=== PATIENT | male | born 1965 | race Caucasian/White ===

== ENCOUNTER 2017-01-04 09:52 | Day surgery (SDC) | payer OTHER ==
[2016-12-28 09:18] LABS: HEMATOCRIT 47.6 % (37.9-51.0); HEMOGLOBIN 16.7 g/dL (13.5-17.0); HGB HCT DIFFERENCE 2.5; MEAN CORPUSCULAR HEMOGLOBIN 29.3 pg (27.0-33.4); MEAN CORPUSCULAR VOLUME 84 fl (80-97); RED BLOOD COUNT 5.69 10^6/uL (4.35-5.55); RED CELL DISTRIBUTION WIDTH 13.3 % (11.5-14.0)
[2016-12-28 09:45] LABS: ALANINE AMINOTRANSFERASE 28 U/L (21-72); ALBUMIN 4.2 g/dL (3.5-5.0); ALKALINE PHOSPHATASE 64 U/L (38-126); ANION GAP 12 (5-19); ASPARTATE AMINO TRANSFERASE 21 U/L (17-59); BILIRUBIN,DIRECT 0.2 mg/dL (0.0-0.4); BILIRUBIN,TOTAL 0.7 mg/dL (0.2-1.3); BLOOD UREA NITROGEN 22 mg/dL (7-20); CALCIUM 9.5 mg/dL (8.4-10.2); CARBON DIOXIDE 27 mmol/L (22-30); CHLORIDE 104 mmol/L (98-107); CREATININE RESULT 0.94 mg/dL (0.52-1.25); GLUCOSE 112 mg/dL (75-110); POTASSIUM 4.5 mmol/L (3.6-5.0); SODIUM 143.1 mmol/L (137-145); TOTAL PROTEIN 6.8 g/dL (6.3-8.2)
--- NOTE | 2016-12-28 18:54 | EKG REPORT ---
SEVERITY:- NORMAL ECG - SINUS RHYTHM : Confirmed by: Jose F Barkley MD 28-Dec-2016 18:53:56
[~2017-01-04 09:52] MED LIST: ACETAMINOPHEN 325 MG TABLET PO PRN; ALBUTEROL SULFATE 0.083% NEB 2.5 MG/3 ML AMPUL NEB PRN; CEFAZOLIN 1 GM/D5W RTU 1 GM/50 ML RTUPB IV PRN; DEXAMETHASONE SOD PHOSPHATE INJ 4 MG/1 ML VIAL ONE; GLYCOPYRROLATE INJ 0.4 MG/2 ML VIAL ONE; KETOROLAC TROMETHAMINE 60 MG/2 ML SDV ONE; LACTATED RINGERS 1000 ML IV PRN; LIDOCAINE 0.5% INJ-PF (5 MG/ML) 50 ML SDV SUBCUT PRN; LIDOCAINE 2% INJ-PF (20 MG/ML) 10 ML AMPUL ONE; METOCLOPRAMIDE HCL INJ/PF 10 MG/2 ML SDV ONE; NEOSTIGMINE METHYLSULFATE 10 MG/10 ML VIAL ONE; ONDANSETRON HCL INJ/PF 4 MG/2 ML SDV ONE; ROCURONIUM BROMIDE INJ 50 MG/5 ML VIAL IV ONE; SUCCINYLCHOLINE CHLORIDE INJ 200 MG/10 ML VIAL ONE
[2017-01-04] MEDS ORDERED: RINGERS SOLUTION,LACTATED 1,000 ML IV PRN ×2 (10:56→13:19)
[2017-01-04] MEDS ORDERED: RINGERS SOLUTION,LACTATED 500 ML IV ONE (11:00)
[2017-01-04] MEDS ORDERED: ACETAMINOPHEN 100 ML IV ONE (11:02)
[2017-01-04] MEDS ORDERED: PROPOFOL INJ 200 MG/20 ML VIAL IV ONE (11:02)
[2017-01-04] MEDS ORDERED: MIDAZOLAM 2 MG/2 ML INJ ONE (11:02)
[2017-01-04] MEDS ORDERED: FENTANYL CITRATE INJ/PF 250 MCG/5 ML AMPULE ONE (11:02)
[2017-01-04] MEDS ORDERED: DEXMEDETOMIDINE INJ 80 MCG/20 ML VIAL IV ONE (11:03)
[2017-01-04] MEDS ORDERED: EPHEDRINE SULFATE INJ 50 MG/1 ML AMPULE ONE (11:03)
[2017-01-04] MEDS: BUPIVACAINE HCL 0.25 % INJ/PF (2.5 MG/1 ML) 30 ML VIAL ONE ×2 (12:01→12:33)
[2017-01-04] MEDS ORDERED: OXYCODONE-ACETAMINOPHEN 5-325 MG TABLET PO PRN (13:19)
[2017-01-04] MEDS ORDERED: ONDANSETRON HCL INJ/PF 4 MG/2 ML SDV IV PRN (13:19)
[2017-01-04] MEDS ORDERED: KETOROLAC TROMETHAMINE 60 MG/2 ML SDV IM PRN (13:19)
--- NOTE | 2017-01-04 13:19 | Operative Report ---
Operative Report DATE OF SURGERY: 01/04/17 PREOPERATIVE DIAGNOSIS: Symptomatic cholelithiasis with cholecystitis POSTOPERATIVE DIAGNOSIS: Same: Abdominal adhesions OPERATION: 1. Laparoscopic lysis of adhesions. 2. Laparoscopic cholecystectomy SURGEON: CONNOR GARCIA 1ST CYLINDER VALVE REPAIRER: LUIS SANTANA ANESTHESIA: GA TISSUE REMOVED OR ALTERED: 1 gallbladder with contents COMPLICATIONS: None ESTIMATED BLOOD LOSS: 25 mL INTRAOPERATIVE FINDINGS: See below PROCEDURE: After obtaining informed consent, the patient was taken to the operating room. General Anesthesia was induced; the arms were extended, and the abdomen was exposed, and prepped and draped in a sterile fashion. Instrumentation was set up for laparoscopic cholecystectomy. Surgical plan and surgical timeout were conducted. A vertical incision was made above the umbilicus, and a verres needle was inserted uneventfully into the peritoneal cavity. Pneumoperitoneum was established. The verres needle was removed and a 5 mm trocar was inserted and a 5 mm flexible laparoscope was inserted. Visualization of the peritoneal cavity confirmed safe uneventful entry. Under direct visualization 3 additional 5 mm ports were established, one in the subxiphoid position and second in the subcostal position just to the left of midline. The findings were significant for a dense film of adhesions between the anterior inferior surface of the right lobe of the liver to the intra-abdominal wall as well as the hepatic-duodenal fatty tissue. The findings were consistent with previous inflammation. The patient had no previous abdominal surgery in this area. Photos were taken. We used a combination of blunt, cautery with scissors and ligature energy device to take down the adhesions so that we could get exposure to the inferior surface of the liver and the gallbladder. Visualization of the hepatobiliary anatomy revealed no anatomic variations. A grasper was placed on the fundus of the gallbladder and the gallbladder is elevated over the right surface of the liver; a second grasper was used to grasp the infundibulum of the gallbladder. Because of the floppy nature of the gallbladder, and the fact that we were working in somewhat of a narrowed space as a result of the surrounding omentum still being attached to the more peripheral aspects of the liver, we opted to take the gallbladder down from the fundus. This was effected using hook cautery dissection. Eventually the gallbladder suspended solely from the cystic artery and cystic duct after clearing all final attachments. The neck of the gallbladder and junction with the cystic duct was dissected out. The Cystic artery was in its usual location medial and cephalad to the cystic duct. The cystic artery was surrounded with a right angle clamp, clipped twice proximally and divided with laparoscopic scissors. We now had the gallbladder suspended solely from the cystic duct. Multiple photographs were taken. We now milked the cystic duct of any possible stones, clipped the cystic duct approximately 3 times once distally and divided with scissors. T Graspers were repositioned and the gallbladder was removed uneventfully from the abdominal cavity through the super umbilical port site incision. The specimen was examined, then passed off to pathology for permanent analysis. We returned to the peritoneal cavity check for bleeding, and evidence of bile leak, and there was none. We Confirmed satisfactory placement of clips on cystic duct and cystic artery were secured . At this point we felt the operation was complete. The subcutaneous tissue was then anesthetized with quarter percent Marcaine Sponge and needle counts are correct. All ports removed under direct visualization pneumoperitoneum evacuated, and 5 mm port wounds closed with 3-0 Vicryl suture, benzoin and Steri-Strips. The patient was extubated, and taken to the recovery room in stable condition. The physician environmental engineering assistant, Ms. Santana, provided assistance during this case by: Assisting and port insertion, retracting tissue, instillation of local anesthesia and closure of skin incisions.
--- NOTE | 2017-01-04 13:21 | PDOC DISCHARGE SUMMARY ---
Discharge Summary (SDC) - Discharge Final Diagnosis: Symptomatic cholelithiasis with cholecystitis; intra-abdominal adhesions Date of Surgery: 01/04/17 Discharge Date: 01/04/17 Condition: Good Treatment or Instructions: [facility] [address] [place] [id number] Discharge Instructions: Laparoscopic Surgery 1. General Information: a. DO NOT DRIVE a car or operate dangerous machinery for 3-4 days or while taking narcotic pain pills. b. DO NOT consume alcohol, tranquilizers, sleeping medications or any non- prescribed medications for 24 hours unless approved by your doctor or as long as taking narcotic prescription medications. c. DO NOT make important decisions or sign any important papers for the first 24 hours after surgery. d. When discharged home the same day of surgery have a responsible person with you for the first night. 2. Activity Restrictions: 2 weeks. a. NO heavy lifting, straining abdominal muscles, bending over a lot, yard work, house work, or sports for [address] for 3-4 days or while taking percocet. c. It is fine to go for walks, up and down steps, ride in a car. d. Elevate your head when sleeping/resting. 3. Treatment: a. You may shower 24 hours after surgery, no baths or swimming for 2 weeks. Remove band-aids or dressings before shower but leave paper strips (steri-strips ) on the skin to fall off on their own. If still on at postoperative visit they will be removed then. b. Drainage of fluid or blood is not unusual from an incision. If occurs, you can clean with peroxide and cotton ball daily and cover with dry gauze until the wound seals. c. If a lot of bleeding occurs, you can hold pressure with a gauze or cloth over the site for 10 minutes and it will usually stop. If bleeding continues you will need to call for possible evaluation in office or emergency room. 4. Medications: a. Percocet may be taken for pain as needed, one or two tablets every 4-6 hours. Stop the narcotic when able since you cannot take it and drive, and they cause constipation. You may switch to plain Tylenol, Advil or Aleve as you transition from the narcotic. Many adults find good pain relief with Advil 600- 800 mg three times a day with meals. This can cause indigestion, ulcers, and kidney problems with long-term use. b. You should resume all normal medications unless a change is specified by your doctors. c. Begin with clear liquids and may progress to your normal diet if not nauseated. No high fat, high protein foods the day of surgery. Normal diet 6. The following may occur after laparoscopic surgery: a. Shoulder or upper back ache from retained gas that should resolve in 1-2 days b. Soreness and bruising at incision sites will resolve with time. c. Scrotal swelling (labia in women) and bruising is often seen after hernia surgery. d. Sore throat e. Fatigue may last days to weeks. f. Difficulty urinating may occur and may need to come into emergency room for urinary catheter placement. 7. Notify Physician If: a. Worsening or pain not improved with pain medication b. Persistent nausea and vomiting c. Fever above 101 d. Persistent bleeding or swelling at operative site e. Unable to urinate and uncomfortable bladder 6-8 hours after surgery 8..Follow Up Care: a. Schedule a follow up appointment with your doctor for 2 weeks. In the event of any postoperative problems or questions or you may call the office during business hours or the On-Call physician evenings and weekends at [facility] I understand the instructions for my postoperative care as described above and a copy has been given to me. Patient/Significant Other Witness Date Prescriptions: Oxycodone HCl/Acetaminophen [Percocet 5-325 mg Tablet] 1 tab PO ASDIR PRN #15 tab PRN Reason: Discharge Diet: As Tolerated Discharge Activity: Activity As Tolerated Home Care Assistance: None Needed Report the Following to Your Physician Immediately: Shortness of Breath, Increase in Pain, Fever over 101 Degrees
[2017-01-04] MEDS ORDERED: MEPERIDINE HCL/PF INJ 25 MG/1 ML DISP.SYRIN IV PRN (13:48)
[2017-01-04] MEDS ORDERED: PROMETHAZINE HCL INJ 25 MG/1 ML VIAL IV PRN ×2 (13:48)
[2017-01-04] MEDS ORDERED: FENTANYL CITRATE INJ/PF 100 MCG/2 ML AMPUL IV PRN ×3 (13:48)
[2017-01-04] MEDS ORDERED: DIPHENHYDRAMINE HCL 50 MG/ML VIAL IV PRN (13:48)
[2017-01-04 17:38] VITALS: BP 126/73
== END 2017-01-04 17:33 | disposition home or self-care (01) ==
LOC: OROUT 09:52
PROVIDERS: ATTEND Surgery
PROC: 0FT44ZZ Resection of Gallbladder, Percutaneous Endoscopic Approach (ICD-10-PCS; principal; 2017-01-04 12:00)
DX: K81.1 Chronic cholecystitis (principal); K66.0 Peritoneal adhesions (postprocedural) (postinfection); F17.210 Nicotine dependence, cigarettes, uncomplicated
CPT/HCPCS: 93005; 36415; 85027; 80076; 80048; 88304 ×2; 93010; 94640; 47562; J2250; J0690; J3490 ×3; J1100; J1885; J3010; J2765; J0330; J2405; J2704; J0131; 790

== ENCOUNTER 2017-06-16 09:16 | Emergency (ER) | payer OTHER ==
[2017-06-16] MEDS ORDERED: CEFTRIAXONE INJ 1000 MG VIAL IM ONE (09:49)
[2017-06-16] MEDS ORDERED: LIDOCAINE 1% INJ-PF (10 MG/ML) 30 ML SDV INJ ONE (09:49)
--- NOTE | 2017-06-16 10:06 | ER Document Report ---
ED Skin Rash/Insect Bite/Abscs - General Chief Complaint: Insect Bite Stated Complaint: POSSIBLE INSECT BITE Time Seen by Provider: 06/16/17 09:37 Mode of Arrival: Ambulatory Information source: Patient Notes: Patient is a 51-year-old male who presents to the ER today for possible insect bite to his right wrist. Patient states that he noticed it yesterday, did not see anything bite him, states that overnight he got redness and swelling to the wrist and a "bruise blister" to the site he thinks he may have been bitten not. Patient denies any fevers, chills, history of MRSA. He states that it has been draining some blood and yellow fluid. TRAVEL OUTSIDE OF THE [place] IN LAST 30 DAYS: No - Related Data Allergies/Adverse Reactions: erythromycin base Allergy (Severe, Verified 06/16/17 09:23) n and v Past Medical History - General Information source: Patient - Social History Smoking Status: Never Smoker Family History: Reviewed & Not Pertinent Patient has suicidal ideation: No Patient has homicidal ideation: No - Past Medical History Cardiac Medical History: Denies: Hx Coronary Artery Disease, Hx Heart Attack, Hx Hypertension Pulmonary Medical History: Denies: Hx Asthma, Hx Bronchitis, Hx COPD, Hx Pneumonia Neurological Medical History: Reports: Hx Seizures - as child-not current. Denies: Hx Cerebrovascular Accident Renal/ Medical History: Denies: Hx Peritoneal Dialysis Musculoskeltal Medical History: Denies Hx Arthritis - Immunizations Hx Diphtheria, Pertussis, Tetanus Vaccination: No Review of Systems - Review of Systems Constitutional: No symptoms reported EENT: No symptoms reported Cardiovascular: No symptoms reported Respiratory: No symptoms reported Gastrointestinal: No symptoms reported Genitourinary: No symptoms reported Male Genitourinary: No symptoms reported Musculoskeletal: No symptoms reported Skin: See HPI Hematologic/Lymphatic: No symptoms reported Neurological/Psychological: No symptoms reported Physical Exam - Vital signs Vitals: Temp Pulse Resp BP Pulse Ox 97.5 F 66 20 150/107 H 100 06/16/17 09:18 06/16/17 09:18 06/16/17 09:18 06/16/17 09:18 06/16/17 09:18 - Notes Notes: PHYSICAL EXAMINATION: GENERAL: Well-appearing and in no acute distress. HEAD: Atraumatic, normocephalic. EYES: Pupils equal round and reactive to light, extraocular movements intact, sclera anicteric, conjunctiva are normal. NECK: Normal range of motion, supple without lymphadenopathy LUNGS: CTAB and equal. No wheezes rales or rhonchi. HEART: Regular rate and rhythm without murmurs EXTREMITIES: Normal range of motion, no pitting edema. No cyanosis. NEUROLOGICAL: Cranial nerves grossly intact. Normal sensory/motor exams. PSYCH: Normal mood, normal affect. SKIN: Warm, Dry, normal turgor, 1 cm in diameter hematoma to the right lateral wrist, draining some yellow fluid, erythema to the dorsal right wrist and retirement up forearm, mild edema noted to the dorsal right wrist, no fluctuance or induration noted Course - Re-evaluation Re-evalutation: 06/16/17 10:47 hematoma was incised But did not actually drain any blood, just clear fluid like a blister. Patient was given Rocephin injection here and sent home on doxycycline and Keflex as erythema does seem to be spreading up forearm. Patient was afebrile here with normal vital signs. Wound culture was obtained. Skin marker was used to draw the area of redness and patient was highly advised to return if redness when outside the liner got worse. - Vital Signs Vital signs: Temp Pulse Resp BP Pulse Ox 98 F 67 17 147/64 H 97 06/16/17 10:27 06/16/17 10:27 06/16/17 10:27 06/16/17 10:27 06/16/17 10:27 Discharge - Discharge Clinical Impression: Infected blister Cellulitis Qualifiers: Site of cellulitis: extremity Site of cellulitis of extremity: upper extremity Laterality: right Qualified Code(s): L03.113 - Cellulitis of right upper limb Condition: Stable Disposition: HOME, SELF-CARE Additional Instructions: Please pay close attention to the redness, if it starts to get worse, please come back in immediately. Follow up with primary care provider, call tomorrow to make followup appointment. Prescriptions: Cephalexin Monohydrate [Keflex 500 mg Capsule] 500 mg PO BID 7 Days #14 capsule Doxycycline Hyclate 100 mg PO BID #20 capsule Forms: Return to Work
[2017-06-16 10:28] VITALS: BP 147/64
== END 2017-06-16 10:30 | disposition home or self-care (01) ==
LOC: ER 09:16
DX: S60.821A Blister (nonthermal) of right wrist, initial encounter (principal); L03.113 Cellulitis of right upper limb; X58.XXXA Exposure to other specified factors, initial encounter; Z88.1 Allergy status to other antibiotic agents
CPT/HCPCS: 99282; 96372; 87070; 87205; 87075; 10060; J0696

== ENCOUNTER 2018-02-15 07:51 | Emergency (ER) | payer OTHER ==
[2018-02-15] MEDS ORDERED: SULFAMETHOXAZOLE/TRIMETHOPRIM 800-160 MG TABLET PO ONE (09:13)
[2018-02-15] MEDS ORDERED: CEFTRIAXONE INJ 1000 MG VIAL IM ONE (09:13)
[2018-02-15] MEDS ORDERED: LIDOCAINE 1% INJ-PF (10 MG/ML) 30 ML SDV INFIL ONE (09:13)
--- NOTE | 2018-02-15 09:19 | ER Document Report ---
HPI - HPI Patient complains to provider of: Insect bite Onset: Other - 2 days ago Onset/Duration: Worse Quality of pain: Achy Pain Level: 2 Context: Patient complains of insect bite to the medial aspect of his left lower extremity. Patient states that the areas become red and swollen. Patient states he has had cellulitis due to insect bites in the past and suspects the same today. Patient states he did see his primary doctor and was placed on Keflex yesterday. Patient states that he has only had 3 doses of the medication so far. Associated Symptoms: Other - Insect bite, leg redness Exacerbated by: Denies Relieved by: Denies Similar symptoms previously: Yes Recently seen / treated by doctor: Yes - ROS ROS below otherwise negative: Yes Systems Reviewed and Negative: Yes All other systems reviewed and negative - CONSTITUTIONAL Constitutional: DENIES: Fever - EENT EENT: DENIES: Sore Throat - CARDIOVASCULAR Cardiovascular: DENIES: Chest pain - RESPIRATORY Respiratory: DENIES: Coughing - MUSCULOSKELETAL Musculoskeletal: REPORTS: Extremity pain, Swelling - DERM Skin Color: Erythema Skin Problems: Blister <KELL HARRISON - Last Filed: 02/15/18 16:37> Past Medical History - General Information source: Patient - Social History Smoking Status: Never Smoker Frequency of alcohol use: None Drug Abuse: None Occupation: School system Family History: Reviewed & Not Pertinent Patient has suicidal ideation: No Patient has homicidal ideation: No - Past Medical History Cardiac Medical History: Denies: Hx Coronary Artery Disease, Hx Heart Attack, Hx Hypertension Pulmonary Medical History: Denies: Hx Asthma, Hx Bronchitis, Hx COPD, Hx Pneumonia Neurological Medical History: Reports: Hx Seizures - as child-not current. Denies: Hx Cerebrovascular Accident Renal/ Medical History: Denies: Hx Peritoneal Dialysis Musculoskeltal Medical History: Denies Hx Arthritis Surgical Hx: Negative - Immunizations Hx Diphtheria, Pertussis, Tetanus Vaccination: No <KELL HARRISON - Last Filed: 02/15/18 16:37> Vertical Provider Document - CONSTITUTIONAL Agree With Documented VS: Yes Exam Limitations: No Limitations General Appearance: WD/WN, No Apparent Distress - INFECTION CONTROL TRAVEL OUTSIDE OF THE [place] IN LAST 30 DAYS: No - HEENT HEENT: Atraumatic, Normocephalic - NECK Neck: Normal Inspection, Supple - RESPIRATORY Respiratory: Breath Sounds Normal, No Respiratory Distress - MUSCULOSKELETAL/EXTREMETIES Musculoskeletal/Extremeties: AICHA KELLEY - NEURO Level of Consciousness: Awake, Alert, Appropriate Motor/Sensory: No Motor Deficit - DERM Integumentary: Warm, Dry Notes: Fluid-filled blisterlike lesion with surrounding erythema. No drainable abscess. Patient with streaking going up medial aspect of left thigh concerning for lymphangitis. <KELL HARRISON - Last Filed: 02/15/18 16:37> Course - Re-evaluation Re-evalutation: 02/15/18 09:15 Patient with cellulitis and lymphangitis, patient nontoxic in appearance. Patient has only had 3 doses of his antibiotics at this time. Patient encouraged to continue to take the Keflex although increase the dosage to every 6 hours in addition to adding Bactrim. Good return precautions given. - Vital Signs Vital signs: Temp Pulse Resp BP Pulse Ox 97.9 F 76 16 145/76 H 95 02/15/18 07:56 02/15/18 07:56 02/15/18 07:56 02/15/18 07:56 02/15/18 07:56 <KELL HARRISON - Last Filed: 02/15/18 16:37> - Vital Signs Vital signs: Temp Pulse Resp BP Pulse Ox 97.3 F 57 L 18 132/84 H 96 02/15/18 09:54 02/15/18 09:54 02/15/18 09:54 02/15/18 09:54 02/15/18 09:54 <ARMAAN ASCENCIO - Last Filed: 02/17/18 15:08> Discharge <KELL HARRISON - Last Filed: 02/15/18 16:37> - Discharge Scribe Attestation: 02/17/18 15:08 I personally performed the services described documentation, reviewed and edited the documentation which was dictated to describe my presence, and it accurately records my words and actions. <ARMAAN ASCENCIO - Last Filed: 02/17/18 15:08> - Discharge Clinical Impression: Cellulitis Qualifiers: Site of cellulitis: unspecified site Qualified Code(s): L03.90 - Cellulitis, unspecified Insect bite Qualifiers: Encounter type: initial encounter Qualified Code(s): W57.XXXA - Bitten or stung by nonvenomous insect and other nonvenomous arthropods, initial encounter Condition: Stable Disposition: HOME, SELF-CARE Instructions: Cellulitis ([facility]), Cephalexin ([facility]), Rocephin ([facility]), Swollen Insect Bite or Sting ([facility]), Trimethoprim-Sulfa ([facility]) Additional Instructions: Return immediately for any new or worsening symptoms Followup with your primary care provider, call tomorrow to make a followup appointment Increase the dose of your Keflex to 500 mg every 6 hours for 1 week. Prescriptions: Cephalexin Monohydrate [Keflex 500 mg Capsule] 500 mg PO Q6H 5 Days capsule Mupirocin [Bactroban 2% Ointment 22 gm] 1 applic TP TID #22 gm Naproxen [Naprosyn 250 Nmg Tablet] 1 tab PO BID #14 tablet Sulfamethoxazole/Trimethoprim [Bactrim Ds Tablet] 1 each PO BID #20 tablet Forms: Return to Work
[2018-02-15 09:55] VITALS: BP 132/84
== END 2018-02-15 09:54 | disposition home or self-care (01) ==
LOC: ER 07:51
DX: L03.116 Cellulitis of left lower limb (principal); S80.862A Insect bite (nonvenomous), left lower leg, initial encounter; M79.605 Pain in left leg; M79.89 Other specified soft tissue disorders; W57.XXXA Bitten or stung by nonvenomous insect and other nonvenomous arthropods, initial encounter
CPT/HCPCS: 99281; 96372; J3490; J0696

== ENCOUNTER → 2018-07-31 | Outpatient (CLI) | payer OTHER ==
--- NOTE | 2018-07-31 12:13 | RADIOLOGY REPORT (SQ) ---
EXAM DESCRIPTION: CHEST PA/LATERAL COMPLETED DATE/TIME: 07/31/2018 11:59 am REASON FOR STUDY: PRE-OP COMPARISON: None. EXAM PARAMETERS: NUMBER OF VIEWS: two views TECHNIQUE: Digital Frontal and Lateral radiographic views of the chest acquired. RADIATION DOSE: NA LIMITATIONS: none FINDINGS: LUNGS AND PLEURA: No opacities, masses or pneumothorax. No pleural effusion. MEDIASTINUM AND HILAR STRUCTURES: No masses or contour abnormalities. HEART AND VASCULAR STRUCTURES: Heart normal size. No evidence for failure. BONES: No acute findings. HARDWARE: None in the chest. OTHER: No other significant finding. IMPRESSION: NO SIGNIFICANT RADIOGRAPHIC FINDING IN THE CHEST. TECHNICAL DOCUMENTATION: JOB ID: [id number] [employer]- All Rights Reserved Reading location - IP/workstation name: [email or web address]
[2018-07-31 12:45] LABS: ANION GAP 12 (5-19); BLOOD UREA NITROGEN 13 mg/dL (7-20); CALCIUM 9.9 mg/dL (8.4-10.2); CARBON DIOXIDE 27 mmol/L (22-30); CHLORIDE 102 mmol/L (98-107); GLUCOSE 97 mg/dL (75-110); POTASSIUM 4.5 mmol/L (3.6-5.0); SODIUM 140.5 mmol/L (137-145)
[2018-07-31 14:52] LABS: HEMATOCRIT 48.6 % (37.9-51.0); HEMOGLOBIN 17.2 g/dL (13.5-17.0); MEAN CORPUSCULAR HEMOGLOBIN 30.2 pg (27.0-33.4); MEAN CORPUSCULAR HGB CONC 35.4 g/dL (32.0-36.0); MEAN CORPUSCULAR VOLUME 85 fl (80-97); PLATELET COUNT 280 10^3/uL (150-450); RED CELL DISTRIBUTION WIDTH 13.1 % (11.5-14.0); WHITE BLOOD COUNT 8.8 10^3/uL (4.0-10.5)
--- NOTE | 2018-07-31 20:09 | EKG REPORT ---
SEVERITY:- NORMAL ECG - SINUS RHYTHM : Confirmed by: Vianey Torres 31-Jul-2018 20:08:37
== END ==
LOC: OD 11:16
PROVIDERS: ATTEND Surgery
DX: Z01.818 Encounter for other preprocedural examination (principal); K43.2 Incisional hernia without obstruction or gangrene; Z90.49 Acquired absence of other specified parts of digestive tract; Z87.09 Personal history of other diseases of the respiratory system; N20.0 Calculus of kidney; F17.210 Nicotine dependence, cigarettes, uncomplicated
CPT/HCPCS: 36415; 71046; 80048; 85025; 85027; 93005; 93010

== ENCOUNTER 2018-08-17 08:32 | Day surgery (SDC) | payer OTHER ==
[~2018-08-17 08:32] MED LIST changes: +ACETAMINOPHEN 1,000 MG/100 ML RTUPB IV ONE; -ACETAMINOPHEN 325 MG TABLET PO PRN; -ALBUTEROL SULFATE 0.083% NEB 2.5 MG/3 ML AMPUL NEB PRN; +BUPIVACAINE HCL 0.25 % INJ/PF (2.5 MG/1 ML) 30 ML VIAL ONE; -CEFAZOLIN 1 GM/D5W RTU 1 GM/50 ML RTUPB IV PRN; +CEFAZOLIN SODIUM 2 GM in DEXTROSE 5%-WATER 100 ML IV PRN; +FENTANYL CITRATE INJ/PF 100 MCG/2 ML AMPUL ONE; -GLYCOPYRROLATE INJ 0.4 MG/2 ML VIAL ONE; +IBUPROFEN 800 MG in NORMAL SALINE 250 ML IV PRN; -KETOROLAC TROMETHAMINE 60 MG/2 ML SDV ONE; -METOCLOPRAMIDE HCL INJ/PF 10 MG/2 ML SDV ONE; +MIDAZOLAM 2 MG/2 ML INJ ONE; -NEOSTIGMINE METHYLSULFATE 10 MG/10 ML VIAL ONE; +PROPOFOL INJ 200 MG/20 ML VIAL IV ONE; -ROCURONIUM BROMIDE INJ 50 MG/5 ML VIAL IV ONE; -SUCCINYLCHOLINE CHLORIDE INJ 200 MG/10 ML VIAL ONE; +SUGAMMADEX SODIUM 200 MG/2 ML SDV IV ONE
[2018-08-17] MEDS ORDERED: ALBUTEROL SULFATE 0.083% NEB 2.5 MG/3 ML AMPUL NEB ONE (09:08)
[2018-08-17] MEDS ORDERED: ONDANSETRON HCL INJ/PF 4 MG/2 ML SDV IV PRN (11:06)
[2018-08-17] MEDS ORDERED: DIPHENHYDRAMINE HCL 50 MG/ML VIAL IV PRN (11:06)
[2018-08-17] MEDS ORDERED: PROMETHAZINE HCL INJ 25 MG/1 ML VIAL IV PRN ×2 (11:06)
[2018-08-17] MEDS ORDERED: MORPHINE SULFATE 10 MG/ML INJ IV PRN (11:06)
[2018-08-17] MEDS ORDERED: MEPERIDINE HCL/PF INJ 25 MG/1 ML DISP.SYRIN IV PRN (11:06)
[2018-08-17] MEDS ORDERED: FENTANYL CITRATE INJ/PF 100 MCG/2 ML AMPUL IV PRN ×3 (11:06)
[2018-08-17] MEDS ORDERED: FENTANYL CITRATE INJ/PF 100 MCG/2 ML AMPUL ONE (12:09)
[2018-08-17] MEDS ORDERED: HYDROMORPHONE HCL INJ/PF 2 MG/ML AMPULE ONE (13:12)
[2018-08-17] MEDS: HYDROMORPHONE HCL INJ/PF 2 MG/ML AMPULE IV PRN ×5 (13:12→13:52)
[2018-08-17] MEDS ORDERED: LORAZEPAM INJ 2 MG/1 ML VIAL ONE (14:17)
[2018-08-17] MEDS ORDERED: IPRATROPIUM/ALBUTEROL 0.5-2.5 MG/3 ML AMPUL NEB ONE (14:18)
[2018-08-17] MEDS ORDERED: SUCCINYLCHOLINE CHLORIDE INJ 200 MG/10 ML VIAL ONE (15:06)
[2018-08-17] MEDS ORDERED: ROCURONIUM BROMIDE INJ 50 MG/5 ML VIAL IV ONE (15:06)
[2018-08-17] MEDS: HYDROCODONE/ACETAMINOPHEN 10-325 MG TABLET ONE ×2 (15:15→15:20)
[2018-08-17 16:58] VITALS: BP 148/88
--- NOTE | 2018-08-22 20:01 | Operative Report ---
Nonrecallable Operative Report DATE OF SURGERY: 08/17/18 PREOPERATIVE DIAGNOSIS: 1. Incisional ventral hernia. 2. Diastases recti POSTOPERATIVE DIAGNOSIS: Same as above OPERATION: 1. Robot-assisted laparoscopic ventral hernia repair with mesh. 2. Laparoscopic plication of diastases recti. SURGEON: MARILOU GUTIÉRREZ ANESTHESIA: GA TISSUE REMOVED OR ALTERED: None COMPLICATIONS: None apparent ESTIMATED BLOOD LOSS: Minimal PROCEDURE: Drains/implants 15 x [address] hernia mesh. Procedure in detail: After informed consent was obtained, the patient was brought into the operating room and laid in the supine position. The area of the abdomen was prepped and draped in a normal sterile fashion. A 15 blade scalpel was used to create a left upper quadrant incision. The abdomen was then accessed using a 5 mm trocar and 5 mm camera in the left upper quadrant. It was introduced into the abdomen using the Optiview technique. Gas insufflation was attached, and pneumoperitoneum was achieved. Next an 8 mm robotic trocar was placed in the left lower quadrant under direct laparoscopic visualization. A 12 mm trocar was placed in the left lateral abdomen. The 5 mm trocar was removed and replaced with an 8 mm robotic trocar. The robot was then brought over the patient and docked appropriately. Attention was then turned to examination of the incisional hernia defect. The defect was situated in the supraumbilical position. There was also a large diastases recti present. The falciform ligament was mobilized and plication of the diastases with closure of the defect was undertaken. This was done using 3 separate number 1 V lock sutures in simple running fashion, overlapping the sutures. Once this was completed a 15 x [address] hernia mesh was chosen to adequately cover the defect and diastases. The mesh was apposed to the anterior abdominal wall using the EPS system. The mesh was then sutured into place using 2-0 V lock suture in simple running fashion. Once this was completed, the mesh was inspected. It was found to lie flat against the anterior abdominal wall. It appeared to be in very good position. Next, the robot was undocked and attention was turned to closure of the laparoscopic trocar sites. The 8 mm trocar sites were closed using 0 Vicryl suture in simple interrupted fashion with the Endo Close device. The 12 mm trocar was closed using 0 Vicryl suture in [id number] fashion with the Endo Close device. Once this was completed, the trochars were removed and pneumoperitoneum was relieved. The trocar site fascia was closed using the previously placed sutures. The overlying skin was closed using 4-0 Vicryl Rapide suture in subcuticular fashion. Dressings were placed, and the procedure was concluded. All sponge, instrument, and needle counts were correct x2. Condition: Stable.
--- NOTE | 2018-08-22 20:03 | Discharge Summary ---
Discharge Summary (SDC) - Discharge Final Diagnosis: Ventral incisional hernia Date of Surgery: 08/17/18 Discharge Date: 08/17/18 Condition: Stable Forms: ASU Anesthesia D/C Instruction, Discharge POC-Surgical Service Referrals: MARILOU GUTIÉRREZ MD [ACTIVE STAFF] - 09/03/18 3:30 pm Discharge Diet: As Tolerated Respiratory Treatments at Home: Deep Breathing/Coughing, Incentive Spirometer Discharge Activity: Balance Activity w/Rest, No Lifting Over 10 Pounds Home Care Assistance: None Needed Report the Following to Your Physician Immediately: Increase in Pain, Fever over 101 Degrees, Unusual Bleeding, Redness, Swelling, Warmth, Drainage-Foul Smelling, IV Site Infection Signs
== END 2018-08-17 16:50 | disposition home or self-care (01) ==
LOC: OROUT 08:32
PROVIDERS: ATTEND Surgery
DX: K43.2 Incisional hernia without obstruction or gangrene (principal); M62.08 Separation of muscle (nontraumatic), other site; Z88.1 Allergy status to other antibiotic agents
CPT/HCPCS: 49329; 49654; S2900; 36415; 790; 86850; 86900; 86901; C1781; J0131; J0330; J0690; J1100; J1170; J1741; J2060; J2250; J2405; J2704; J3010; J3490; J7050; J7620

== ENCOUNTER 2019-10-09 09:53 | Emergency (ER) | payer OTHER ==
[2019-10-09 10:37] LABS: ABSOLUTE EOSINOPHILS # (AUTO) 0.1 10^3/uL (0.0-0.6); ABSOLUTE LYMPHOCYTES (AUTO) 3.2 10^3/uL (0.5-4.7); ABSOLUTE MONOCYTES (AUTO) 1.2 10^3/uL (0.1-1.4); ABSOLUTE NEUT (AUTO) 14.2 10^3/uL (1.7-8.2); BASOPHILS % (AUTO) 0.2 % (0-2); EOSINOPHILS % (AUTO) 0.5 % (0-6); HEMATOCRIT 45.5 % (37.9-51.0); HEMOGLOBIN 15.8 g/dL (13.5-17.0); MEAN CORPUSCULAR HEMOGLOBIN 29.7 pg (27.0-33.4); MEAN CORPUSCULAR HGB CONC 34.7 g/dL (32.0-36.0); MEAN CORPUSCULAR VOLUME 86 fl (80-97); MONOCYTES % (AUTO) 6.3 % (3-13); PLATELET COUNT 266 10^3/uL (150-450); RED BLOOD COUNT 5.32 10^6/uL (4.35-5.55); RED CELL DISTRIBUTION WIDTH 13.2 % (11.5-14.0); TOTAL CELLS COUNTED % (AUTO) 100 %; WHITE BLOOD COUNT 18.7 10^3/uL (4.0-10.5)
[2019-10-09 10:51] LABS: ALKALINE PHOSPHATASE 70 U/L (38-126); ANION GAP 8 (5-19); ASPARTATE AMINO TRANSFERASE 17 U/L (17-59); BILIRUBIN,TOTAL 0.3 mg/dL (0.2-1.3); BLOOD UREA NITROGEN 18 mg/dL (7-20); CALCIUM 9.6 mg/dL (8.4-10.2); CARBON DIOXIDE 27 mmol/L (22-30); CHLORIDE 102 mmol/L (98-107); CREATINE KINASE 32 U/L (55-170); GLUCOSE 111 mg/dL (75-110); POTASSIUM 4.1 mmol/L (3.6-5.0); TOTAL PROTEIN 6.5 g/dL (6.3-8.2)
--- NOTE | 2019-10-09 10:58 | RADIOLOGY REPORT (SQ) ---
EXAM DESCRIPTION: CHEST SINGLE VIEW COMPLETED DATE/TIME: 10/09/2019 10:24 am REASON FOR STUDY: BED 20 CP COMPARISON: 07/31/2018 EXAM PARAMETERS: NUMBER OF VIEWS: One view. TECHNIQUE: Single frontal radiographic view of the chest acquired. RADIATION DOSE: NA LIMITATIONS: None. FINDINGS: LUNGS AND PLEURA: No opacities, masses or pneumothorax. No pleural effusion. MEDIASTINUM AND HILAR STRUCTURES: No masses. Contour normal. HEART AND VASCULAR STRUCTURES: Heart normal in size. Normal vasculature. BONES: No acute findings. HARDWARE: None in the chest. OTHER: No other significant finding. IMPRESSION: NO ACUTE RADIOGRAPHIC FINDING IN THE CHEST. TECHNICAL DOCUMENTATION: JOB ID: [id number] [employer]- All Rights Reserved Reading location - IP/workstation name: [email or web address]
[2019-10-09 11:07] LABS: TROPONIN I < 0.012 ng/mL
--- NOTE | 2019-10-09 12:55 | EKG REPORT ---
SEVERITY:- ABNORMAL ECG - ATRIAL FIBRILLATION, V-RATE 66-103 LEFT BUNDLE BRANCH BLOCK : Confirmed by: Jose F Barkley MD 09-Oct-2019 12:54:41
[2019-10-09] MEDS ORDERED: APIXABAN 5 MG TABLET PO ONE (13:03)
[2019-10-09] MEDS ORDERED: METOPROLOL SUCCINATE 50 MG TAB.SR.24H PO ONE (13:03)
--- NOTE | 2019-10-09 13:09 | ER Document Report ---
ED General - General Chief Complaint: Irregular Pulse Stated Complaint: CHEST TIGHTNESS Time Seen by Provider: 10/09/19 12:13 Primary Care Provider: JOHNNY PALMER PA-C [Primary Care Provider] - Follow up as needed TRAVEL OUTSIDE OF THE [place] IN LAST 30 DAYS: No - HPI Notes: Patient is a 53-year-old gentleman who presents to the emergency department for evaluation of chest pain. He states he was getting ready for work and he developed some chest tightness. He states that he had no associated nausea, diaphoresis, near syncope. He may have felt some palpitations. His pain was diffuse, across his whole chest, did not radiate. He was evaluated in route, given 1 nitroglycerin and his pain entirely resolved. He was found in route to be in atrial fibrillation. He has no history of that. Patient actually saw his coal sample tester, Dr. Shepherd, last week. He had a negative nuclear medicine stress test at that time. He had an echocardiogram which at that time was unremarka ble. He does have a history of a left bundle branch block per the patient. - Related Data Allergies/Adverse Reactions: erythromycin base Allergy (Severe, Verified 06/16/17 09:23) n and v Home Medications: cholesterol meds. Patient currently also on steroids and an unknown antibiotic secondary to a "infected bug bite" on his left ankle Past Medical History - General Information source: Patient - Social History Smoking Status: Current Every Day Smoker Family History: Reviewed & Not Pertinent Patient has suicidal ideation: No Patient has homicidal ideation: No - Past Medical History Cardiac Medical History: Reports: Hx Hypercholesterolemia Denies: Hx Coronary Artery Disease, Hx Heart Attack, Hx Hypertension Pulmonary Medical History: Denies: Hx Asthma, Hx Bronchitis, Hx COPD, Hx Pneumonia Neurological Medical History: Reports: Hx Seizures - as child-not current. Denies: Hx Cerebrovascular Accident Renal/ Medical History: Denies: Hx Peritoneal Dialysis Musculoskeletal Medical History: Denies Hx Arthritis - Immunizations Hx Diphtheria, Pertussis, Tetanus Vaccination: No Review of Systems - Review of Systems Cardiovascular: See HPI Skin: See HPI -: Yes All other systems reviewed and negative Physical Exam - Vital signs Vitals: Pulse Ox 100 10/09/19 09:56 - Notes Notes: Vital signs reviewed, please refer to chart. Head is normocephalic, atraumatic. Pupils equal round, reactive to light. Neck is supple without meningismus. Heart is irregularly irregular. Lungs are clear to auscultation bilaterally. Abdomen is soft, nontender, normoactive bowel sounds throughout. Extremities without cyanosis, clubbing. Posterior calves are nontender. Peripheral pulses are equal. Skin is warm and dry. Patient is awake, alert, neurological exam is nonfocal. Course - Re-evaluation Re-evalutation: 10/09/19 13:06 Patient presents to the emergency department for evaluation. He had chest pain prior to arrival, which resolved entirely. He did have new onset atrial fibrillation. His heart rate is been in the 80s and 90s primarily throughout course of his stay. With movement he does go up to 110 intermittently. His EKG did not fact show a left bundle branch block. I spoke to Dr. Shepherd, his coal sample tester from [facility]. He did in fact confirm to me that the patient has a known left bundle branch block. His nuclear med stress test was completely unremarkable. He had no A. fib on echocardiogram last week. Barring any changes in his cardiac enzymes or heart rate, we both agree that this seems to be appropriately managed as an outpatient. Patient is given Toprol 50 mg, as well as Eliquis 5 mg, at the behest of his coal sample tester. When his second troponin comes back, if it is unremarkable the patient will be discharged with prescriptions for same and follow-up with his coal sample tester on Monday. Patient is amenable to this plan. 10/09/19 14:06 Some of patient's heart rates are little populated as high, but this was just because the gain was too high on some of the telemetry leads. I went in and manually checked his pulse multiple times. It was between 72 and 90. The patient is stable. His second troponin is undetectable. These high readings are entirely erroneous. Patient will be sent home with a prescription for Toprol-XL, Eliquis twice daily, and close follow-up with his coal sample tester. - Vital Signs Vital signs: Temp Pulse Resp BP Pulse Ox 97.7 F 17 125/80 96 10/09/19 10:10 10/09/19 12:50 10/09/19 12:50 10/09/19 12:50 - Laboratory Result Diagrams: 10/09/19 10:05 10/09/19 10:05 Laboratory results interpreted by me: 10/09/19 10/09/19 10:05 10:05 WBC 18.7 H Absolute Neuts (auto) 14.2 H Glucose 111 H Creatine Kinase 32 L - Diagnostic Test Radiology reviewed: Reports reviewed Radiology results interpreted by me: 10/09/19 13:08 Chest X-Ray 10/09/19 09:56 IMPRESSION: NO ACUTE RADIOGRAPHIC FINDING IN THE CHEST. - EKG Interpretation by Me Additional EKG results interpreted by me: 10/09/19 13:08 Atrial fibrillation with a rate of 90 bpm. Left axis deviation. Left bundle branch block. This was a change from prior study performed in this facility in July 2018, but unchanged other than rhythm for prior EKG performed with his coal sample tester. Discharge - Discharge Clinical Impression: New onset atrial fibrillation Condition: Stable Disposition: HOME, SELF-CARE Instructions: Atrial Fibrillation ([facility]) Additional Instructions: Please start the medications as prescribed. Take your second dose of Eliquis tonight, start your Toprol-XL tomorrow. Follow-up with your coal sample tester on Monday. Return to the emergency department with worsening or new concerning symptoms of any sort. Referrals: JOHNNY PALMER PA-C [Primary Care Provider] - Follow up as needed
[2019-10-09 14:06] VITALS: BP 114/81
== END 2019-10-09 14:20 | disposition home or self-care (01) ==
LOC: ER 09:53
DX: I48.91 Unspecified atrial fibrillation (principal); R07.9 Chest pain, unspecified; F17.200 Nicotine dependence, unspecified, uncomplicated; E78.00 Pure hypercholesterolemia, unspecified; Z88.3 Allergy status to other anti-infective agents
CPT/HCPCS: 36415; 71045; 80053; 82550; 82553; 84484; 85025; 93005; 93010